=== PATIENT | male | born 1945 | race Caucasian/White ===

== ENCOUNTER 2017-12-28 06:18 | Day surgery (SDC) | payer BC ==
--- NOTE | 2017-12-27 07:50 | History and Physical - [place] ---
CHIEF COMPLAINT/HISTORY OF CHIEF COMPLAINT: This patient presents with a history of intractable post lumbar laminectomy radiculopathy. On 01/07/14 a spinal cord stimulator was performed with internal generator, through time the system was working quite well until recently as changes in pain patterns and exacerbations increased the ability to fully program and control the stimulator to meet the changes needs was unsuccessful. Multiple attempts at reprogramming failed. He is here for a generator change from the [employer]. to the new [employer]. Wavewriter which has distinctly different technology generating new waveforms, new combinations and recycling of combinations of waveforms simultaneously all resulting in dramatically improved stimulation patterns and improved pain control. PAST MEDICAL HISTORY: Hypertension and sleep apnea. PAST SURGICAL HISTORY: Lumbar spinal surgery times two, knee surgery, and stimulator implant. EMPLOYMENT STATUS: Retired. MEDICATIONS ON ADMISSION: List to be provided. ALLERGIES: None. FAMILY/PSYCHOSOCIAL HISTORY: Social history - Caffeine. Family history - Thyroid disease, diabetes and cancer. SYSTEMS REVIEW: The patient is appropriate in no acute distress. The remainder of the systems review is positive for glasses, headaches, sleep disturbance, blood pressure problems, degenerative arthritis, and fibromyalgia. PHYSICAL EXAMINATION: Height and weight are not known. Vital signs are not available. HEENT: Within normal limits. LUNGS: Clear. HEART: Regular rate and rhythm. ABDOMEN: Nontender. MUSCULOSKELETAL: Examination of the musculoskeletal system shows the incision for the leads approximating low thoracic upper lumbar. The generator is at the right posterior gluteal margin. I identified the incisional sites are intact. Primary pain pattern is low back with a bilateral lower extremity extension. There are no obvious motor sensory abnormalities. NEUROLOGIC: Cranial nerves are intact. IMPRESSION: 1. POST LUMBAR LAMINECTOMY SYNDROME, ICD-10 CODE M96.1 WITH RADICULOPATHY, ICD- 10 CODE M54.16 AND M54.17. 2. SPINAL CORD STIMULATOR INTERNAL GENERATOR. PLAN: The patient is here for a swap or replacement of his spinal cord stimulator generator with the new technology generator to improve pain control. The procedure will be considered outpatient, although an overnight stay will be evaluated. JOB NUMBER: [id number] [facility]
[~2017-12-28 06:18] MED LIST: ACETAMINOPHEN 1,000 MG/100 ML BTL IV ONE; CEFAZOLIN 2 Gram 2 GM/50 ML BAG IVPB ONE; FAMOTIDINE 20MG TABLET PO ONE; MECLIZINE 25 MG TABLET PO ONE; METOCLOPRAMIDE 10 MG TABLET PO ONE
[2017-12-28] MEDS ORDERED: 0.9 % SODIUM CHLORIDE 10 ML VIAL IVP ONE (06:19)
[2017-12-28] MEDS ORDERED: CEFAZOLIN 1G VIAL IM ONE (06:19)
[2017-12-28] MEDS ORDERED: FENTANYL PF 100MCG/2ML VIAL IV ONE (06:19)
[2017-12-28] MEDS ORDERED: BUPIVACAINE 0.5% W/EPI MPF 30 ML VIAL IVP ONE (06:19)
[2017-12-28] MEDS ORDERED: MIDAZOLAM HCL 2MG/2ML VIAL IV ONE (06:19)
[2017-12-28] MEDS ORDERED: LIDOCAINE 2% MDV (20MG/ML) 20ML VIAL IV ONE (06:19)
[2017-12-28] MEDS ORDERED: PROPOFOL 10 MG/ML VIAL IV ONE (06:19)
[2017-12-28] MEDS ORDERED: LIDOCAINE 1% W/EPI 1:200,000 MPF 30ML SQ ONE (06:19)
--- NOTE | 2017-12-29 10:14 | Operative Note ---
DATE OF SURGERY: 12/28/17 PREOPERATIVE DIAGNOSES: 1. POST LUMBAR LAMINECTOMY SYNDROME, ICD-10 CODE = M96.1 WITH RADICULOPATHY, ICD -10 CODE = M54.16 AND M54.17. 2. SPINAL CORD STIMULATOR, INTERNAL GENERATOR. OPERATION: FLUOROSCOPICALLY-GUIDED INCISION, SUBCUTANEOUS DISSECTION, AND REMOVAL AND REPLACEMENT INTERNAL PULSE GENERATOR WITH [employer]. SURGEON: JOSIAH SZYMANSKI D.O. ANESTHESIA: LOCAL SEDATION. ANESTHESIA PROVIDER: ERROL Becker. INDICATION: This patient presents with pain, which is an intractable post lumbar laminectomy radiculopathy. Due to the failure of therapy, a spinal cord stimulator implant was performed roughly four years previous. During this period of time, the pain control was sufficient. Recently, he had a change in his pain pattern. The generator and the system was unable to completely control his pain despite multiple reprogrammings. Stimulation patterns appeared to be in the appropriate locations suggesting lead placement was still good. It was decided to change his generator to the new generation [employer] WaveWriter, which had greater potential for waveform generation, overlapping waveform simultaneously, and better pain control. PROCEDURE: Intravenous line, vital sign monitoring, IV sedation by Anesthesia, patient position prone. Sterile prep, sterile technique. At the right posterior gluteal margin generator pouch, skin infiltrated, incision made, and subcutaneous dissection was conducted to the generator pouch, which was opened. The generator from the indwelling leads. The new [employer]Writer generator placed onto the field and interfaced with the existing leads. Antibiotic irrigation and Bovie for hemostasis. The generator was placed into the pouch and the incisions were closed using STRATAFIX suture 2-0 fascia, 3-0 skin. Dermabond closure. He was transported to the Recovery Room, stable, no side- effects from the procedure or the sedation. When fully awake and alert, complex programming performed re-establishing stimulation and better degrees of pain control and coverage. The patient was very pleased. DISCHARGE INSTRUCTIONS: 1. Sites remain clean and dry. He may shower but not sit in water or bathe in a hot tub. 2. Standard medications resumed including the antibiotic, Levaquin, 500 mg for 14 days. 3. Office will contact the patient in 12-24 hours to set up a time in 7-10 days to evaluate the incision. Until then, his activities should stay low. All other instructions provided, numbers to contact with problems given. He was then discharged. cc: Dr. Abbe Hoang MD JOB NUMBER: [id number] [facility]
== END 2017-12-28 09:15 | disposition home or self-care (01) ==
LOC: SUR 06:18
PROVIDERS: ATTEND Pain Medicine Interventional Pain Medicine
DX: M96.1 Postlaminectomy syndrome, not elsewhere classified (principal); M54.16 Radiculopathy, lumbar region; M54.17 Radiculopathy, lumbosacral region; E11.9 Type 2 diabetes mellitus without complications; Z79.4 Long term (current) use of insulin; I10 Essential (primary) hypertension; E78.00 Pure hypercholesterolemia, unspecified; M06.9 Rheumatoid arthritis, unspecified; J44.9 Chronic obstructive pulmonary disease, unspecified; G47.33 Obstructive sleep apnea (adult) (pediatric); K21.9 Gastro-esophageal reflux disease without esophagitis
CPT/HCPCS: 63685; 00300; 95972; 36416; 82948; J3010; J0690; C1820